=== PATIENT | female | born 1960 | race Caucasian/White ===

== ENCOUNTER 2016-08-29 11:42 | Day surgery (SDC) | payer OTHER ==
[2016-08-11 12:58] VITALS: BMI 30.3
--- NOTE | 2016-08-13 15:20 | HP ---
[facility] - Chief Complaint Chief Complaint: right knee pain - Past Medical History Allergies/Adverse Reactions: Allergies Allergy/AdvReac Type Severity Reaction Status Date / Time No Known Allergies Allergy Verified 08/11/16 12:45 ...LMP Comment: 2014 - Current Medications Current Medications: Home Medications Medication Instructions Recorded Metformin HCl 500 mg PO DAILY 08/11/16 Satellite Physical Exam - Physical Examination General Appearance: Well Nourished, Well Developed, Alert & Oriented x3 ENT: Clear Lung: Normal air movement Heart: Regular rate & rhythm Extremities: Other (right knee-+swelling, + ttp, decr rom, nvi xrays show severe medial djd) Neurological: Intact, Alert, Oriented [facility]ellite Impression/Plan - Impression/Plan Impression: right knee medial djd Operative Procedure: right medial robby ukr Date to be Performed: 08/15/16
[2016-08-29] MEDS ORDERED: ROPIVICAINE 0.2%/MORPH PF/KETOROLAC - 51ML DISP.SYRINGE IA ONE ×3 (12:02→15:32)
[2016-08-29] MEDS ORDERED: TRANEXAMIC ACID 1000 MG/10 ML VIAL IVPUSH ONE (12:02)
[2016-08-29] MEDS ORDERED: GABAPENTIN 300 MG CAPSULE (FP) PO ONE (12:02)
[2016-08-29] MEDS ORDERED: CEFAZOLIN 2 GM in DEXTROSE 5%-WATER - 50 ML IVPB ONE (12:02)
[2016-08-29] MEDS ORDERED: oxyCODONE HCL 10 MG SUSTAINED ACTING TABLET PO ONE (12:02)
[2016-08-29] MEDS ORDERED: CELECOXIB 200 MG CAPSULE PO ONE (12:02)
[2016-08-29] MEDS ORDERED: ACETAMINOPHEN INJECTION 100 ML IVPB ONE (12:33)
[2016-08-29] MEDS ORDERED: BUPIVACAINE HCL/PF 0.5% (5MG/ML) 10 ML VIAL ONE (12:34)
[2016-08-29] MEDS ORDERED: MAG HYDROX/AL HYDROX/SIMETH 30 ML UNIT-DOSE CUP PO PRN (13:08)
[2016-08-29] MEDS ORDERED: LACTATED RINGERS SOLUTION 1,000 ML IV SCH (13:15)
[2016-08-29] MEDS ORDERED: MIDAZOLAM HCL 2 MG/2 ML SINGLE DOSE VIAL ONE (13:19)
[2016-08-29] MEDS ORDERED: DEXAMETHASONE SOD PHOSPHATE/PF 10 MG/ML SDV ONE (13:20)
[2016-08-29] MEDS ORDERED: ceFAZolin SODIUM 1 GM VIAL ONE ×3 (13:30→14:13)
[2016-08-29] MEDS ORDERED: THROMBIN (BOVINE) 5,000 UNIT VIAL TP ONE ×3 (13:31→15:06)
[2016-08-29] MEDS ORDERED: GELATIN, ABSORBABLE 100 EACH SPONGE TP ONE (13:31)
[2016-08-29] MEDS ORDERED: PROPOFOL 20 ML ONE (14:20)
[2016-08-29] MEDS ORDERED: ACETAMINOPHEN 1000 MG/100 ML VIAL (NON FORMULARY) IVPB ONE (15:12)
[2016-08-29] MEDS ORDERED: oxyCODONE HCL 5 MG TABLET PO PRN ×2 (15:12)
--- NOTE | 2016-08-29 15:41 | OP ---
Operative Note - Note: Operative Date: 08/29/16 Pre-Operative Diagnosis: right knee medial OA Operation: right knee Medial Makoplasty, Patellaplasty Implants: 8mm Poly insert, 3 Femur, 4 Tibia, Laura Surgeon: Ken Sears Machine Rug Cleaner: Tutu Camarillo Anesthesiologist/TOOL DESIGN DRAFTER: Tracey Araiza Anesthesia: General, Local Specimens Removed: bone, cartilage Estimated Blood Loss (mls): 0 Blood Volume Replaced (mls): 0 Fluid Volume Replaced (mls): 1,000 Operative Report Dictated: Yes
[2016-08-29] MEDS ORDERED: INSULIN SLIDING SCALE (NOVOLOG) 1 VIAL SQ SCH (16:30)
[2016-08-29] MEDS: ONDANSETRON 4 MG/2 ML VIAL IVPB PRN (18:05)
[2016-08-29] MEDS: oxyCODONE HCL 10 MG SUSTAINED ACTING TABLET PO SCH (21:51)
[2016-08-29] MEDS: SENNOSIDES/DOCUSATE COMBO (SENNA PLUS) TABLET (UD) PO SCH (21:51)
[2016-08-29] MEDS: ACETAMINOPHEN 325 MG TABLET (FP) PO SCH (21:53)
[2016-08-29] MEDS: GABAPENTIN 300 MG CAPSULE (FP) PO SCH (21:53)
[2016-08-29] MEDS: CEFAZOLIN 2 GM/D5W 50 ML IVPB SCH (21:54)
[2016-08-29 23:35] VITALS: TEMP 98
[2016-08-30] MEDS: ACETAMINOPHEN 325 MG TABLET (FP) PO SCH ×2 (04:10→09:08)
[2016-08-30] MEDS: CEFAZOLIN 2 GM/D5W 50 ML IVPB SCH (06:44)
[2016-08-30 06:50] VITALS: BP 112/75; PULSE 84
[2016-08-30] MEDS: ONDANSETRON 4 MG/2 ML VIAL IVPB PRN (07:28)
[2016-08-30] MEDS ORDERED: ASPIRIN 325 MG TABLET PO SCH (08:00)
[2016-08-30] MEDS: oxyCODONE HCL 10 MG SUSTAINED ACTING TABLET PO SCH (09:15)
[2016-08-30] MEDS: GABAPENTIN 300 MG CAPSULE (FP) PO SCH (09:16)
[2016-08-30] MEDS: SENNOSIDES/DOCUSATE COMBO (SENNA PLUS) TABLET (UD) PO SCH (09:17)
[2016-08-30] MEDS ORDERED: MULTIVITAMINS (DAILY MVI) TABLET (FP) PO SCH (10:00)
[2016-08-30] MEDS ORDERED: PANTOPRAZOLE 40 MG TABLET (FP) PO SCH (10:00)
--- NOTE | 2016-08-30 13:29 | SPEC ---
DATE OF OPERATION: 08/29/2016 PROCEDURE: Right medial unicompartmental knee replacement, robotic-assisted navigation (MAKOplasty) and patelloplasty PREOPERATIVE DIAGNOSIS: Degenerative joint disease right knee POSTOPERATVE DIAGNOSIS: Degenerative joint disease right knee. SURICAL ATTENDING: Ken Sears MD BLEACH CHLORINATOR: Tutu Camarillo MD ANESTHESIA: Spinal and regional CLOSURE: No. 3 femur, No. 4 tibia, 8 mm polyethylene. No. 1 Vicryl to fascia, 2-0 for the subcutaneous and 3-0 Monocryl subcuticular to skin with skin glue for skin. 4-0 undyed Vicryl for pin sites. ESTIMATED BLOOD LOSS: Negligible TOURNIQUET TIME: Approximately 20 minutes COMPLICATIONS: No complications CONDITION: To recovery room in stable condition. PROCEDURE: Patient was taken to the operating room. Spinal and femoral block anesthesia was administered by the anesthesiologist. IV Kefzol and TXA were administered prophylactically prior to the case. A well-padded pneumatic tourniquet was placed on the right proximal thigh. The right lower extremity was prepped and draped in the usual sterile fashion. A 6 cm longitudinal incision was made along the medial retinaculum from mid patella toward the tibial tubercle. Hemostasis was achieved using Bovie cautery. Sharp dissection was carried down to the level of the capsule, which was opened the entire length of incision. Subperiosteal dissection in the anterior medial proximal tibia. Periosteal elevator was used to facilitate this dissection. Partial fat pad excision was performed to gain visualization. A femoral and tibial checkpoint were malleted into place. Two bicortical pins were drilled through small stab incisions into the femur, 1 handbreadth above the patella. Two bicortical pins were drilled into the tibia 1 handbreadth below the tibial tubercle through small stab incisions as well. To these, pins were attached to clamps and the navigation arrays. The knee was then registered with the navigation device by ascertaining the center of rotation of the hip, both the medial and lateral malleoli, at approximately 50 points on the tibia and femur. Registration was within LORY parameters, being less than half a millimeter. At this time, the medial osteophytes on both the femur and tibia were removed by use of rongeur. The knee was taken through a range of motion and with stressing the medial compartment open at 0, 30, 60, 90 and 120 degrees. Stress points were obtained in order to develop a flexion / extension and a tightness / looseness graph. The robotic navigation device obtained a virtual tracking of the knee and found that the traction was in excellent position. The components were manipulated virtually in order to obtain a flexion/extension; tightness/looseness graph was then +/- 1 mm. The robot was then brought into the field and registered with the navigation device. The robot was then used to jayant the bone on both the femur and the tibia to the specifications and direction of the navigation device. All excess bone, osteophytes, and cartilage were removed, including the medial meniscus. Care was taken to protect the MCL throughout the case. The trial components were then placed into the knee with the appropriate polyethylene plastic trial liner. The knee was taken through a range of motion and the graph on the navigation device was then used again to confirm ideal position of the components and ideal tightness/looseness of the components. The trial components were removed, along with the checkpoints and the array. The knee was exsanguinated with an Esmarch bandage and tourniquet inflated to 175 mmHg. The knee was post-antibiotic irrigated and then dried and then Avitene and Gelfoam were placed to aid in hemostasis. The real components were then cemented in using modern generation cement techniques with antibiotics, cement and pressurization. All excess cement was removed. The knee was thoroughly inspected to remove any excess cement and bone fragments. The real polyethylene component was then clipped into place. Range of motion revealed excellent range of motion and good tensioning throughout. The knee was post-antibiotic irrigated. The fascia was closed using 2-0 Vicryl interrupted suture. The tourniquet was deflated. Total tourniquet time was less than 30 minutes. Hemostasis was obtained. Another dose of TXA was administered. The subcutaneous layer was closed with 2-0 Vicryl, 3-0 Monocryl subcuticular for skin. A pain cocktail was infused throughout the soft tissue. The pin sites were irrigated and closed with 4-0 Vicryl and skin glue was used for all incisions. Sterile Aquacel dressing was placed on all incisions followed by a dressing from the toes to the thigh. Patient was transferred to the recovery room in stable condition. No complications. Davon [id number]
[2016-08-31] MEDS ORDERED: metFORMIN HCL 500 MG TABLET (FP) PO SCH (07:00)
== END 2016-08-30 20:24 | disposition home health service (06) ==
LOC: FASU 11:42 → FM/S 18:52 → FASU 08-30 20:24
PROVIDERS: ATTEND Orthopaedic Surgery
PROC: 8E0YXBZ Computer Assisted Procedure of Lower Extremity (ICD-10-PCS; 2016-08-29)
PROC: 8E0Y0CZ Robotic Assisted Procedure of Lower Extremity, Open Approach (ICD-10-PCS; 2016-08-29)
PROC: 0SRC0L9 Replacement of Right Knee Joint with Medial Unicondylar Synthetic Substitute, Cemented, Open Approach (ICD-10-PCS; principal; 2016-08-29 14:25)
DX: M17.11 Unilateral primary osteoarthritis, right knee (principal)
CPT/HCPCS: 20985; 27446; C1776; S2900; 73560-TC-RT; 94760; 97116-GP; 97161-GP

== ENCOUNTER 2022-06-13 08:21 | Day surgery (SDC) | payer OTHER ==
[2022-06-11 17:01] VITALS: BMI 29.7
[2022-06-13 08:47] VITALS: RESP 20
[2022-06-13] MEDS ORDERED: PROPOFOL 60 ML ONE (09:57)
[2022-06-13] MEDS ORDERED: LIDOCAINE HCL/PF 2% SDV 5ML VIAL ONE (09:57)
[2022-06-13 10:40] VITALS: TEMP 98.7
[2022-06-13 10:51] VITALS: BP 110/65; PULSE 82
== END 2022-06-13 10:55 | disposition home or self-care (01) ==
LOC: FASU-ENDO 08:21
PROVIDERS: ATTEND Internal Medicine Gastroenterology
PROC: 0DBC8ZX Excision of Ileocecal Valve, Via Natural or Artificial Opening Endoscopic, Diagnostic (ICD-10-PCS; principal; 2022-06-13 09:52)
DX: Z12.11 Encounter for screening for malignant neoplasm of colon (principal); K64.1 Second degree hemorrhoids; K64.8 Other hemorrhoids
CPT/HCPCS: 82962; 88305-TC